=== PATIENT | female | born 1945 | race Caucasian/White ===

== ENCOUNTER → 2018-09-20 | Outpatient (CLI) | payer MEDICARE, OTHER ==
--- NOTE | 2018-09-21 14:59 | MAM ---
EXAM DESCRIPTION: 3D Screening BILATERAL : Digital Mammography. CLINICAL HISTORY: 73 years Female SCREEN . No complaints. No personal or family history of breast cancer. Childbirth. Postmenopausal 32 years. Currently on HRT. Prior right breast benign biopsy. Lifetime risk of developing breast cancer (Tyrer-Cuzick model)(%): 4.2. COMPARISON: Baseline study at this facility.. No prior reports available. TECHNIQUE: Bilateral CC and MLO projection full-field images, digital tomosynthesis mammographic technique. Bilateral digital 2-D full-field MLO images. CAD not available for tomosynthesis or 2-D images. FINDINGS: The breast parenchymal density pattern is: Heterogeneously dense breast tissue, which may obscure small masses. No skin thickening or nipple retraction. Bilateral intramammary lymph nodes and axillary tail. Bilateral solitary microcalcifications and coarse calcifications. 2 regions of architectural distortion in the middle third of the right breast approximately 12:00 to 11:00 position 6 cm from the nipple. Bilateral vascular calcifications. No new focal, stellate mass or density, focal asymmetry , and no suspicious microcalcifications left breast. Taking into account, differences in mammographic technique. IMPRESSION: BI-RADS CATEGORY: 0 - INCOMPLETE- Need additional imaging evaluation. FOLLOW-UP: Recall for additional imaging: Orthogonal full-field digital tomosynthesis and targeted right breast ultrasound if indicated by diagnostic images.. Written communication concerning the IMPRESSION and Follow-up, will be mailed to the patient and referring health care provider.. Electronically signed by: Raciel Chaney MD 09/21/2018 2:57 PM FARM CREW LEADER
== END ==
LOC: MAMMO 11:00
PROVIDERS: ATTEND General Practice
DX: Z12.31 Encounter for screening mammogram for malignant neoplasm of breast (principal)

== ENCOUNTER → 2018-10-08 | Outpatient (CLI) | payer MEDICARE, OTHER ==
--- NOTE | 2018-10-08 21:59 | US ---
EXAM DESCRIPTION: Breast,Right: Ultrasound CLINICAL HISTORY: 73 yearsFemaleABNORMAL MAMMO. Regions of architectural distortion in the right breast. COMPARISON: Diagnostic digital tomosynthesis right breast on this visit. TECHNIQUE: Transcutaneous scanning of the right breast utilizing trivedi-scale and Doppler modes. Scanning performed by the primer powder blender wet and Dr. Chaney. FINDINGS: Mixture of fibroglandular and fatty echotexture. Scanning right breast 11:00 to 1:00 positions 6 cm from the nipple. No dominant solid mass or distinct cyst. No parenchymal edema or large calcifications. No overlying skin changes. Normal vascularity. IMPRESSION: 1. Bi-Rads Category 2: Benign. 2. Please refer to diagnostic tomosynthesis and report on the right breast on this visit The FINDINGS and the FOLLOW-UP plan were reviewed in person with the patient after the examination. Written communication explaining the IMPRESSION and FOLLOW-UP will be mailed to the patient and referring care provider. Electronically signed by: Raciel Chaney MD 10/08/2018 9:56 PM MATHEMATICS LECTURER
--- NOTE | 2018-10-09 17:02 | MAM ---
EXAM DESCRIPTION: 3D Diagnostic, Right: Digital Mammography CLINICAL HISTORY: 73 yearsFemaleABNORMAL MAMMO . Architectural distortion right breast middle third. near a region where prior biopsy was performed. COMPARISON: Bilateral screening digital breast tomosynthesis 09/20/2018. Targeted right breast ultrasound included with this examination.. TECHNIQUE: Right breast LM and ML projection full-field images, digital mammographic tomosynthesis technique. CAD not utilized. FINDINGS: The breast parenchymal density pattern is: Heterogeneously dense breast tissue, which may obscure small masses. No skin thickening or nipple retraction prior biopsy site marker is identified middle third superior right breast. This is posterior to the architectural distortion. Benign type calcifications but no mass effect. Ultrasound: Mixture of fibroglandular and fatty echotexture. Scanning right breast 11:00 to 1:00 positions 6 cm from the nipple. No dominant solid mass or distinct cyst. No parenchymal edema or large calcifications. No overlying skin changes. Normal vascularity. IMPRESSION: Benign exam. BIRAD CATEGORY: 2 BENIGN FINDINGS. RECOMMENDATIONS: FOLLOW UP: Return to routine digital bilateral mammographic screening, one year interval from September 2018. Written communication explaining the IMPRESSION and follow-up, will be mailed to the patient and referring health care provider. According to the [employer], yearly mammograms are recommended starting at age 40 and continuing as long as a woman is in good health. Any breast change noted on a breast self-exam should be reported promptly to the patient's healthcare provider. Breast MRI is recommended for women with an approximately 20-25% or greater lifetime risk of breast cancer, including women with a strong family history of breast or ovarian cancer and women who have been treated for Hodgkin's disease. A negative mammographic report should not delay tissue diagnosis in patients with significant clinical history or physical findings. Extremely dense breast tissue limits the sensitivity of digital mammography. Electronically signed by: Raciel Chaney MD 10/09/2018 4:59 PM VP BIOLOGY
== END ==
LOC: MAMMO 10:24
PROVIDERS: ATTEND General Practice
DX: R92.8 Other abnormal and inconclusive findings on diagnostic imaging of breast (principal)
CPT/HCPCS: 76641; 77065; G0279